=== PATIENT | female | born 1985 | race Hispanic/Latino ===

== ENCOUNTER 2017-08-04 20:10 | Emergency (ER) | payer MEDICAID, SELFPAY ==
[2016-02-19 13:56] VITALS: BMI 25.4
--- NOTE | 2017-08-04 22:12 | OBDCSUM ---
Datetime: 08/04/2017 21:45 Discharged to, Provider: Home Follow up at, Provider: Dr. Verde Disch Instr Activity: Normal activity Disch Instr Diet: Regular Discharge Instructions, Provider: Routine instructions given Discharge Diagnosis, Provider: Antepartum Bleeding Discharge Time: 08/04/2017 21:46 Follow up in weeks, Provider: 08/05/2017 Disch Referrals: None Contraception discussed, Prov: No
--- NOTE | 2017-08-04 22:13 | OBHP ---
Datetime: 08/04/2017 20:53 IP Adm Impression: Term, intrauterine ; No Active Labor IP Admit Plan: Observation/Evaluation; Discharge home Admit Comment, IP Provider: 32 yo with IUP 39+ wks presents c/o vaginal bloody spotting abou t 2 hours, and back pain that started after bleeding. Patient states she has been leaking for the las t 3 days but she is unsure if she broke her water. Denies cxt, and reports good movoments. [place] [facility]: [facility]. clinic OB: NVD x1 2017, GBS + PMH: alpha Thalasemia trait. PSH: denies Allg: denies Meds: Iron, PNV O: VSS, see PE tab. A/P: 32 yo F IUP 39+ weeks with bloody spotting, no active labor. - Observation/Reeval - /maternal monitoring. -------21:44 Reeval: Patient reports feeling well, no contraccions appreciated on toco no active bleeding d/c home Labor precautions. Case seen and evaluated with Dr Kearney. Robby PGY 1 OB Hospitalist Addendum: Pt seen and examined by me. Agree w/ above. 32 yo at 39+5 weeks w/ vaginal spotting and lower back pain. On exam, pt appeared comfortable lying in bed. Spec: blood and mucus in vault. No pooling. Neg ferning. VE: /-3. NST reactive. Mackey: occasional. Pt discharged home w/ labor precautions. Pt has a f/u appointment at [facility] tomorrow. (ES) Pelvic Type - PN: Adequate Extremities - PN: Normal Abdomen - PN: Normal Back - PN: Normal Breast - PN: Not Done Lungs - PN: Normal Heart - PN: Normal Thyroid - PN: Normal Neurologic - PN: Normal HEENT - PN: Normal General - PN: Normal FHR - Baseline A Provider: 130 Membranes, Provider: Intact Contraction Comments Provider: quiet Comments, ACOG Physical Exam: Nitrazine positive due to blood Speculum: bloody/mucous discharge, negative pooling. Negative ferning. VE: FT/Long/high. Pool Provider: Negative Nitrazine Provider: Positive Ferning Provider: Negative EGA AdmitDate IP: 39.5 Vital Signs Provider: Reviewed; Within Normal Limits IP Chief Complaint: Vaginal bleeding NICHD Variability Prov Fetus A: Moderate 6-25bpm NICHD Accel Fetus A IP Provider: 15X15 FHR Category Provider Fetus A: Category I NICHD Decel Fetus A IP Provider: None Dilatation, Provider: FT Genitourinary Exam: Normal DTRs - PN: Normal
[2017-08-05 02:24] VITALS: BP 103/65; PULSE 87; TEMP 98.2
== END 2017-08-04 21:41 | disposition home or self-care (01) ==
LOC: H.EROB2 20:10
DX: O26.853 Spotting complicating pregnancy, third trimester (principal); O26.93 Pregnancy related conditions, unspecified, third trimester; M54.5 Low back pain; O34.63 Maternal care for abnormality of vagina, third trimester; N89.8 Other specified noninflammatory disorders of vagina; Z3A.39 39 weeks gestation of pregnancy; O47.1 False labor at or after 37 completed weeks of gestation

== ENCOUNTER 2017-08-05 15:24 | Inpatient (IN) | payer MEDICAID, SELFPAY ==
[2017-08-05 15:48] VITALS: BMI 22.4
[2017-08-05] MEDS ORDERED: Penicillin G Potassium 5 MU in Sodium Chloride 0.9% 50 ML IVPB ONE (15:50)
[2017-08-05] MEDS: Lactated Ringer's 1,000 ML IV SCH ×2 (16:00→17:00)
[2017-08-05] MEDS ORDERED: Lactated Ringer's 1,000 ML IV SCH (16:00)
--- NOTE | 2017-08-05 16:06 | OBHP ---
Datetime: 08/05/2017 13:45 IP Adm Impression: Term, intrauterine ; Active labor; Intact Membranes IP Admit Plan: Admit to unit Admit Comment, IP Provider: 32 yo with IUP 39+ wks c/o CTX since last night. worse after sh e had been seen today with Dr Gill (membrane stripped in offic - spoke to Dr Coppola to b obtin a records ..said GBS+) No VB good movoments. [facility]: [facility] clinic - some records/incomplete - need labs OB: NVD x1 2016, GBS + PMH: alpha Thalasemia trait. PSH: denies Allg: denies Meds: PNV/Fe A/P: 32 yo F IUP 39+ in early labor GBS+ PLAN: admit to L_D -IV PCN -labor, delivery, pain managment and disucssed '[facility] records form [facility], [place] Presentation-Admit: Vertex IP Fetus A Comments: Sonogram done by me FHR - Baseline A Provider: 120 Contraction Comments Provider: + Pool Provider: Negative IP Hx Assessment: The History has been Reviewed and is Current EGA AdmitDate IP: 39.6 IP Chief Complaint: Uterine contractions NICHD Variability Prov Fetus A: Moderate 6-25bpm NICHD Accel Fetus A IP Provider: 15X15 FHR Category Provider Fetus A: Category I Dilatation, Provider: 4
[2017-08-05] MEDS ORDERED: Penicillin G 5 Million Unit Vial IVPB ONE (16:07)
--- NOTE | 2017-08-05 16:08 | OBADHP ---
Datetime: 08/05/2017 13:45 Admit Comment, IP Provider: 32 yo with IUP 39+ wks c/o CTX since last night. worse after sh e had been seen today with Dr Gill (membrane stripped in offic - spoke to Dr Coppola to aisha obtin a records ..said GBS+) No VB good movoments. PNC: [facility], [place]. clinic - some records/incomplete - need labs OB: NVD x1 2017, GBS + PMH: alpha Thalasemia trait. PSH: denies Allg: denies Meds: PNV/Fe A/P: 32 yo F IUP 39+ in early labor GBS+ PLAN: admit to L_D -IV PCN -labor, delivery, pain managment and disucssed [facility] records form [facility], [place], [facility] Presentation-Admit: Vertex IP Fetus A Comments: Sonogram done by hi FHR - Baseline A Provider: 120 Contraction Comments Provider: + Pool Provider: Negative IP Hx Assessment: The History has been Reviewed and is Current IP Chief Complaint: Uterine contractions NICHD Variability Prov Fetus A: Moderate 6-25bpm NICHD Accel Fetus A IP Provider: 15X15 FHR Category Provider Fetus A: Category I Dilatation, Provider: Jovi RODRIGUEZ AdmitDate IP: 39.6 IP Adm Impression: Term, intrauterine ; Active labor; Intact Membranes IP Admit Plan: Admit to unit Datetime: 08/04/2017 20:53 Pelvic Type - PN: Adequate Extremities - PN: Normal Abdomen - PN: Normal Back - PN: Normal Breast - PN: Not Done Lungs - PN: Normal Heart - PN: Normal Thyroid - PN: Normal Neurologic - PN: Normal HEENT - PN: Normal General - PN: Normal Membranes, Provider: Intact Comments, ACOG Physical Exam: Nitrazine positive due to blood Speculum: bloody/mucous discharge, negative pooling. Negative ferning. VE: FT/Long/high. Nitrazine Provider: Positive Ferning Provider: Negative Vital Signs Provider: Reviewed; Within Normal Limits NICHD Decel Fetus A IP Provider: None Genitourinary Exam: Normal DTRs - PN: Normal
[2017-08-05 16:32] LABS: BASO % 0.3 % (0.0-2.0); EOS % 0.4 % (0.0-4.0); HEMOGLOBIN 12.2 g/dL (12.0-16.0); LYMPH # 1.9 K/uL (1.0-4.3); LYMPH % 27.8 % (20.0-40.0); MEAN CORPUSCULAR HEMOGLOBIN 21.7 pg (27.0-31.0); MEAN CORPUSCULAR HGB CONC 31.8 g/dL (33.0-37.0); MEAN PLATELET VOLUME 11.1 fl (7.2-11.7); MONO # 0.6 K/uL (0.0-0.8); MONO % 8.4 % (0.0-10.0); NEUT # 4.3 K/uL (1.8-7.0); NEUT % 63.1 % (50.0-75.0); NRBC % 0.1 % (0.0-0.0); RBC 5.62 Mil/uL (3.80-5.20); RED CELL DISTRIBUTION WIDTH 14.8 % (11.5-14.5); WHITE BLOOD COUNT 6.8 K/uL (4.8-10.8)
[2017-08-05] MEDS ORDERED: Fentanyl/Bupivacaine HCl 250 ML EPI ONE (17:08)
[2017-08-05 17:10] LABS: MEAN CELL VOLUME 68.3 fl (81.0-99.0)
--- NOTE | 2017-08-05 18:12 | OBPN ---
Datetime: 08/05/2017 18:00 IP Progress Impression Other: GBS+/active phase of labor IP Progress Impression: Reassuring heart rate IP Progress Plan: Continue present management; Antibiotic therapy; Anticipate Vaginal Delivery Pool Provider: Negative Membranes, Provider: Bulging Contraction Comments Provider: 1-2m (no meds) FHR - Baseline A Provider: 120 Presentation-Admit: Vertex IP Progress Note Comment: Notifeid at 4:15pm, she was noted by nurse to be 7cm. She received epidur al anesthesia and feel much better. SVE Dr Elena 5-6cm/75/-2 bulging membranes A: active phase of labor GBS+ PLAN: IV ab given and next dose 20:00pm Discussion with patient about labor, Ab, progress, medications, delivery and - support person is with her. Her is with their daughter in waiting area NICHD Accel Fetus A IP Provider: 15X15 FHR Category Provider Fetus A: Category I NICHD Variability Prov Fetus A: Moderate 6-25bpm Dilatation, Provider: 5-6 Effacement, Provider: 75 Station, Provider: -2 NICHD Decel Fetus A IP Provider: None Datetime: 08/05/2017 13:45 IP Fetus A Comments: Sonogram done by me Datetime: 08/04/2017 20:53 Nitrazine Provider: Positive Ferning Provider: Negative Vital Signs Provider: Reviewed; Within Normal Limits
--- NOTE | 2017-08-05 21:27 | OBPN ---
Datetime: 08/05/2017 21:15 IP Progress Impression: Reassuring heart rate IP Informed Consent Obtain: Vaginal Delivery; Risks, Benefits and Alternatives Discussed IP Procedures: Artificial ROM; Intrauterine Pressure Catheter IP Progress Plan: Continue present management; Augmentation; Anticipate Vaginal Delivery Pool Provider: Negative Membranes, Provider: Ruptured Amniotic Fluid Color, Provider: Clear Contraction Comments Provider: q1min FHR - Baseline A Provider: 135 Presentation-Admit: Vertex IP Progress Note Comment: She feels comfortable No cervical change AROM augmentation - IUPC polaced to better monitor CTX pattern/intensity ...will monitor and possi ble augmetatoin with Pitocin if inadequate intensity of CTX..discussed with kevin and she agrees NICHD Accel Fetus A IP Provider: 15X15 FHR Category Provider Fetus A: Category I NICHD Variability Prov Fetus A: Moderate 6-25bpm Dilatation, Provider: 5-6 Effacement, Provider: 75 Station, Provider: -2 Datetime: 08/05/2017 19:45 Vital Signs Provider: Reviewed; Within Normal Limits NICHD Decel Fetus A IP Provider: None
--- NOTE | 2017-08-05 21:34 | OBPN ---
Datetime: 08/05/2017 21:30 IP Progress Note Comment: She rec'd two doses of PCN for GBS+
[2017-08-05] MEDS ORDERED: Bupivacaine HCl 0.5% PF (30 ml) Inj ONE (21:56)
--- NOTE | 2017-08-05 22:11 | OBPN ---
Datetime: 08/05/2017 22:07 FHR - Baseline A Provider: 140 IP Progress Note Comment: Notified that she is 9cm...having variable decels...will start amnioinfusi on...asked Anesthesia to give top off dose for pain management...pitocin not started NICHD Accel Fetus A IP Provider: 15X15 FHR Category Provider Fetus A: Category II NICHD Variability Prov Fetus A: Moderate 6-25bpm NICHD Decel Fetus A IP Provider: Variable
[2017-08-05] MEDS ORDERED: Sodium Chloride 0.9% 1,000 ML IV SCH (22:15)
[2017-08-06] MEDS ORDERED: Benzocaine/Menthol SPRAY TOP PRN ×2 (00:18→01:30)
[2017-08-06] MEDS ORDERED: Oxycodone/Acetaminophen 5/325 mg Tab PO PRN ×2 (00:18→01:30)
[2017-08-06 06:50] LABS: HEMOGLOBIN 10.6 g/dL (12.0-16.0); MEAN CELL VOLUME 68.5 fl (81.0-99.0); MEAN CORPUSCULAR HEMOGLOBIN 21.8 pg (27.0-31.0); MEAN CORPUSCULAR HGB CONC 31.8 g/dL (33.0-37.0); RBC 4.88 Mil/uL (3.80-5.20); RED CELL DISTRIBUTION WIDTH 14.7 % (11.5-14.5); WHITE BLOOD COUNT 13.8 K/uL (4.8-10.8)
--- NOTE | 2017-08-06 08:24 | OBDS ---
DELIVERY PERSONNEL Delivery Doctor: Mindy Elena DO Splash Line Operator: Savana Armenta RN Anesthesiologist: Chris Lees MD Resident: CARMEN Aguilar1 MATERNAL INFORMATION Delivery Anesthesia: Epidural Medications in Delivery: Oxytocin 30 units Estimated Blood Loss (ml): QBL- 200 Placenta Cultured: No Maternal Complications: None Provider Comments: Over intact perineum, of live infant female. One loose nichal cord noted and reduced. Infant was placed on mother's chest. Cord was clamped and cut by FOB. AGPARG 9,9. Place nta deliveed intact spontaneously. She remained stable. EBL 200cc LABOR SUMMARY EDC: 08/06/2017 00:00 EDC: 08/06/2017 00:00 No. Babies in Womb: 1 Attempted: No Labor Anesthesia: Epidural LABOR INFORMATION Reason for Induction: Not Applicable Onset of Labor: 08/05/2017 18:00 Complete Dilatation: 08/05/2017 22:54 Oxytocin: N/A Group B Beta Strep: Positive Antibiotics # of Doses: 2 Antibiotics Time of Last Dose: 2029 Steroids Given: None Reason Steroids Not Administered: Not Applicable MEMBRANES Membranes Rupture Method: Artificial Rupture of Membranes: 08/05/2017 21:15 Length of Rupture (hrs): 2.22 Amniotic Fluid Color: Clear Amniotic Fluid Amount: Small Amniotic Fluid Odor: Normal STAGES OF LABOR Stage 1 hrs: 4 Stage 1 min: 54 Stage 2 hrs: 0 Stage 2 min: 34 VAGINAL DELIVERY Episiotomy: None Laceration Extension: Second Degree Laceration Type: Perineal Laceration Repair: Yes Laceration Repair Note: 1% Lidoaine infiltrated (5cc). Second degree laceratoin repaired with 2.0 Vi cryl Rapide suture. Hemostasis assured. Initial Vag Sponge Count: 5 Final Vag Sponge Count: 5 Initial Vag Sharps Count: 3 Final Vag Sharps Count: 3 Sponge Count Correct: Yes Sharps Count Correct: Yes BABY A INFORMATION Infant Delivery Date/Time: 08/05/2017 23:28 Method of Delivery: Vaginal Born in Route : No : N/A Forceps: N/A Vacuum Extraction: N/A Shoulder Dystocia : No SHOULDER DYSTOCIA BABY A Delivery Date/Time: 08/05/2017 23:28 PRESENTATION/POSITION BABY A Presentation: Cephalic Cephalic Presentation: Vertex PLACENTA INFORMATION BABY A Placenta Method of Delivery: Spontaneous Placenta Status: Delivered SCORES BABY A Heart Rate 1 min: >100 bpm Resp Effort 1 min: Good Cry Reflex Irritability 1 min: Cough or Sneeze or Pulls Away Muscle Tone 1 min: Active Motion Color 1 min: Body [place], Extremities Blue Resuscitation Effort 1 min: Tactile Stimulation SCORE 1 MIN: 9 Heart Rate 5 min: >100 bpm Resp Effort 5 min: Good Cry Reflex Irritability 5 min: Cough or Sneeze or Pulls Away Muscle Tone 5 min: Active Motion Color 5 min: Body [place], Extremities Blue Resuscitation Effort 5 min: Tactile Stimulation SCORE 5 MIN: 9 INFORMATION BABY A Gestational Age at Delivery: 39.5 Gestational Status: Term Outcome : Liveborn Condition : Stable Sex: Female IDENTIFICATION/MEDS BABY A ID Band Number: [id number] ID Band Location: Left Leg; Left Arm WEIGHT/LENGTH BABY A Infant Birthweight (gms): 3075 Weight (lb): 6 Weight (oz): 12 CORD INFORMATION BABY A No. Cord Vessels: 3 Nuchal Cord : Around Neck x1, Loose Cord Blood Taken: Yes Suction: Mouth; Nose ASSESSMENT BABY A Complications: None Physical Findings at Delivery: Within Normal Limits Infant Respirations: Appears Normal Irrigation Engineer/ALS Called : No Care By: Elgin Carpio Transferred To: Remains with Mother
--- NOTE | 2017-08-06 08:24 | OBDS ---
DELIVERY PERSONNEL Delivery Doctor: Mindy Elena DO Cushion Mat Maker: Savana Armenta RN Anesthesiologist: Chris Lees MD Resident: CARMEN Aguilar1 MATERNAL INFORMATION Delivery Anesthesia: Epidural Medications in Delivery: Oxytocin 30 units Estimated Blood Loss (ml): QBL- 200 Placenta Cultured: No Maternal Complications: None Provider Comments: Over intact perineum, of live infant female. One loose nichal cord noted and reduced. Infant was placed on mother's chest. Cord was clamped and cut by FOB. AGPARG 9,9. Place nta deliveed intact spontaneously. She remained stable. EBL 200cc LABOR SUMMARY EDC: 08/06/2017 00:00 No. Babies in Womb: 1 Attempted: No Labor Anesthesia: Epidural LABOR INFORMATION Reason for Induction: Not Applicable Onset of Labor: 08/05/2017 18:00 Complete Dilatation: 08/05/2017 22:54 Oxytocin: N/A Group B Beta Strep: Positive Antibiotics # of Doses: 2 Antibiotics Time of Last Dose: 2030 Steroids Given: None Reason Steroids Not Administered: Not Applicable MEMBRANES Membranes Rupture Method: Artificial Rupture of Membranes: 08/05/2017 21:15 Length of Rupture (hrs): 2.22 Amniotic Fluid Color: Clear Amniotic Fluid Amount: Small Amniotic Fluid Odor: Normal STAGES OF LABOR Stage 1 hrs: 4 Stage 1 min: 54 Stage 2 hrs: 0 Stage 2 min: 34 VAGINAL DELIVERY Episiotomy: None Laceration Extension: Second Degree Laceration Type: Perineal Laceration Repair: Yes Laceration Repair Note: 1% Lidoaine infiltrated (5cc). Second degree laceratoin repaired with 2.0 Vi cryl Rapide suture. Hemostasis assured. Initial Vag Sponge Count: 5 Final Vag Sponge Count: 5 Initial Vag Sharps Count: 3 Final Vag Sharps Count: 3 Sponge Count Correct: Yes Sharps Count Correct: Yes BABY A INFORMATION Infant Delivery Date/Time: 08/05/2017 23:28 Method of Delivery: Vaginal Born in Route : No : N/A Forceps: N/A Vacuum Extraction: N/A Shoulder Dystocia : No SHOULDER DYSTOCIA BABY A Infant Delivery Date/Time: 08/05/2017 23:28 PRESENTATION/POSITION BABY A Presentation: Cephalic Cephalic Presentation: Vertex PLACENTA INFORMATION BABY A Placenta Method of Delivery: Spontaneous Placenta Status: Delivered SCORES BABY A Heart Rate 1 min: >100 bpm Resp Effort 1 min: Good Cry Reflex Irritability 1 min: Cough or Sneeze or Pulls Away Muscle Tone 1 min: Active Motion Color 1 min: Body [place], Extremities Blue Resuscitation Effort 1 min: Tactile Stimulation SCORE 1 MIN: 9 Heart Rate 5 min: >100 bpm Resp Effort 5 min: Good Cry Reflex Irritability 5 min: Cough or Sneeze or Pulls Away Muscle Tone 5 min: Active Motion Color 5 min: Body [place], Extremities Blue Resuscitation Effort 5 min: Tactile Stimulation SCORE 5 MIN: 9 INFORMATION BABY A Gestational Age at Delivery: 39.5 Gestational Status: Term Infant Outcome : Liveborn Condition : Stable Sex: Female IDENTIFICATION/MEDS BABY A ID Band Number: [id number] ID Band Location: Left Leg; Left Arm WEIGHT/LENGTH BABY A Infant Birthweight (gms): 3075 Weight (lb): 6 Weight (oz): 12 CORD INFORMATION BABY A No. Cord Vessels: 3 Nuchal Cord : Around Neck x1, Loose Cord Blood Taken: Yes Infant Suction: Mouth; Nose ASSESSMENT BABY A Infant Complications: None Physical Findings at Delivery: Within Normal Limits Infant Respirations: Appears Normal Cribber/ALS Called : No Infant Care By: Elgin Carpio Transferred To: Remains with Mother
[2017-08-06] MEDS: Multivitamin With Minerals Tab PO SCH (08:59)
[2017-08-06] MEDS ORDERED: Multivitamin With Minerals Tab PO SCH (09:00)
[2017-08-07] MEDS: Multivitamin With Minerals Tab PO SCH (08:32)
[2017-08-07 18:57] VITALS: BP 107/66; PULSE 74; RESP 20; TEMP 98.1; O2SAT 100
== END 2017-08-07 13:40 | disposition home or self-care (01) | DRG 373 ==
LOC: H.EROB2 15:24 → H.L&D 15:48 → H.OB/GYN 08-06 01:30
PROVIDERS: ADMIT Obstetrics & Gynecology; ATTEND Obstetrics & Gynecology
PROC: 10E0XZZ Delivery of Products of Conception, External Approach (ICD-10-PCS; principal; 2017-08-05)
PROC: 0KQM0ZZ Repair Perineum Muscle, Open Approach (ICD-10-PCS; 2017-08-05)
PROC: 10907ZC Drainage of Amniotic Fluid, Therapeutic from Products of Conception, Via Natural or Artificial Opening (ICD-10-PCS; 2017-08-05)
PROC: 4A1HXCZ Monitoring of Products of Conception, Cardiac Rate, External Approach (ICD-10-PCS; 2017-08-05)
DX: O69.81X0 Labor and delivery complicated by cord around neck, without compression, not applicable or unspecified (principal); O70.1 Second degree perineal laceration during delivery; O76 Abnormality in fetal heart rate and rhythm complicating labor and delivery; O99.824 Streptococcus B carrier state complicating childbirth; Z37.0 Single live birth; Z3A.39 39 weeks gestation of pregnancy

== ENCOUNTER 2017-12-22 09:00 | Day surgery (SDC) | payer SELFPAY ==
[2017-12-22 09:50] LABS: BASO % 0.4 % (0.0-2.0); EOS # 0.1 K/uL (0.0-0.7); EOS % 1.1 % (0.0-4.0); HEMOGLOBIN 11.5 g/dL (12.0-16.0); LYMPH % 37.4 % (20.0-40.0); MEAN CELL VOLUME 66.1 fl (81.0-99.0); MEAN CORPUSCULAR HEMOGLOBIN 20.6 pg (27.0-31.0); MEAN CORPUSCULAR HGB CONC 31.1 g/dL (33.0-37.0); MEAN PLATELET VOLUME 10.2 fl (7.2-11.7); MONO # 0.4 K/uL (0.0-0.8); MONO % 7.3 % (0.0-10.0); NEUT # 2.8 K/uL (1.8-7.0); NEUT % 53.8 % (50.0-75.0); NRBC % 0.2 % (0.0-0.0); RBC 5.57 Mil/uL (3.80-5.20); RED CELL DISTRIBUTION WIDTH 15.1 % (11.5-14.5)
[2017-12-22 09:58] LABS: WHITE BLOOD COUNT 5.2 K/uL (4.8-10.8)
[2017-12-22] MEDS ORDERED: Lactated Ringer's 1,000 ML IV ONE ×2 (10:00→14:30)
[2017-12-22] MEDS ORDERED: Rocuronium 10 mg/ml (5 ml) ONE (10:13)
[2017-12-22] MEDS ORDERED: Propofol 10 mg/ml Inj (20 ML) ONE (10:13)
[2017-12-22] MEDS ORDERED: Phenylephrine 10 mg/ml Inj ONE (10:13)
[2017-12-22] MEDS ORDERED: Midazolam 2 MG/2 ML VIAL ONE (10:13)
[2017-12-22] MEDS ORDERED: Succinylcholine 200 mg/10 ml Inj IV ONE (10:13)
[2017-12-22] MEDS ORDERED: ePHEDrine 50 mg/ml Inj ONE (10:13)
[2017-12-22 10:39] VITALS: BMI 20.5
[2017-12-22] MEDS ORDERED: Dexamethasone 4 mg/1 ml ONE (11:38)
[2017-12-22] MEDS ORDERED: Neostigmine 1:1000 (1 mg/ml) Inj ONE (11:45)
[2017-12-22] MEDS: HYDROmorphone 0.5 mg/0.5 ml ISec IVP PRN ×2 (12:15→12:45)
[2017-12-22] MEDS ORDERED: HYDROmorphone 0.5 mg/0.5 ml ISec ONE (12:18)
--- NOTE | 2017-12-22 12:21 | PCM.SURG1 ---
Surgeon's Initial Post Op Note - Surgeon's Notes Surgeon: Ronnie Building Trades Instructor: Igor PGY4 Type of Anesthesia: General Endo Pre-Operative Diagnosis: Cholelithiasis Operative Findings: Normal anatomy Post-Operative Diagnosis: same Operation Performed: laparoscopic cholecystectomy Specimen/Specimens Removed: gallbladder Estimated Blood Loss: EBL {In ML}: 10 Blood Products Given: N/A Drains Used: No Drains Post-Op Condition: Good Date of Surgery/Procedure: 12/22/17 Time of Surgery/Procedure: 12:21
[2017-12-22] MEDS ORDERED: Sodium Chloride 0.9% 1,000 ML IV SCH (13:45)
[2017-12-22 15:52] VITALS: RESP 18
[2017-12-22 16:39] VITALS: BP 100/54; PULSE 75; TEMP 97.5; O2SAT 100
--- NOTE | 2017-12-26 00:21 | OP ---
PROCEDURE DATE: 12/22/2017 SURGEON: Mandie Trujillo MD FOOD ASSEMBLER: Shyam Costa DO ANESTHESIA: General. PREOPERATIVE DIAGNOSIS: Cholelithiasis. POSTOPERATIVE DIAGNOSIS: Cholelithiasis. PROCEDURE: Laparoscopic cholecystectomy. DESCRIPTION OF OPERATION: With the patient in the supine position under adequate general anesthesia, the abdomen was prepped and draped in the usual sterile manner. Veress needle puncture was performed at the umbilicus with insufflation to 15 cm water pressure of CO2, and a 10-mm laparoscopic trocar was inserted via an infraumbilical incision. Under direct vision, additional trocars were inserted in the epigastrium and right costal margin. The gallbladder was visualized. It was not acutely inflamed. The gallbladder fundus was grasped and elevated. The infundibulum was grasped and retracted laterally. The cystic duct was identified and cleared down towards the junction with the common bile duct. The cystic duct was then triply clipped and divided. The cystic artery was similarly identified, and the cystic artery was also triply clipped and divided. The gallbladder was dissected free of the liver bed using electrocautery. The liver bed was inspected for hemostasis, and the dissection was completed. The gallbladder was placed in a specimen retrieval bag and removed via the umbilical port site. It was noted to contain multiple small stones. The right upper quadrant was irrigated and suctioned. The pneumoperitoneum was released, and the trocars were removed. The umbilical port site was closed with a [id number] fascial suture of 0 Vicryl. All incisions were closed with 4-0 Monocryl subcuticular sutures and Steri-Strips. Dry sterile dressings were applied. The patient tolerated the procedure well and transferred to recovery room in stable condition. Estimated blood loss for the procedure was 10 mL. Mandie Trujillo MD
== END 2017-12-22 17:40 | disposition home or self-care (01) ==
LOC: H.OPSURG 09:00
PROVIDERS: ATTEND Specialist
DX: K80.10 Calculus of gallbladder with chronic cholecystitis without obstruction (principal); D64.9 Anemia, unspecified; K21.9 Gastro-esophageal reflux disease without esophagitis
CPT/HCPCS: 36415; 47562; 85025; 86850; 86900; 88304; J0330; J0690; J1100; J1170; J2001; J2175; J2250; J2370; J2405; J2704; J2710; J3010; J7030; J7120